=== PATIENT | female | born 1980 | race Caucasian/White ===

== ENCOUNTER 2016-04-28 22:42 | Emergency (ER) | payer OTHER ==
[~2016-04-28] VITALS: Ht 162.6 cm; Wt 68.5 kg
[~2016-04-28 22:42] MED LIST: ADVIL,NUPRIN,M200 MG PO; ATARAX,VISTARIL50 MG PO; ATIVAN0.5 MG PO; BACTRIM,SEPT1 TABLET PO; CIPRO500 MG PO; FLEXERIL10 MG PO; GEODON40 MG PO; HYDROCODON-ACE1 EAC7 PO; HYDROXYZINE HCL50 MG PO; KEFLEX500 MG PO; LEVAQUIN750 MG PO; MILK OF MAGN PO; MOTRIN800 MG PO; NAPROSYN500 MG PO; NO HOME MEDS; NORCO 5/3251 TABLET PO; OXYCODONE-APAP1 EACH PO; OXYCODONE5 MG PO; PERCOCET 5/31 TABLET PO; PROCTOFOAM15 GM TP; SERTRALINE HCL100 MG PO; SPRINTEC1 EACH PO; TRAZODONE HCL100 MG PO; TRAZODONE HCL50 MG PO; TYLENOL REGULA325 MG PO; ULTRAM50 MG PO; VIBRAMYCIN100 MG; ZIPRASIDONE HCL40 MG PO; ZOFRAN ODT4 MG PO; ZOFRAN ODT8 MG PO; ZOLOFT25 MG PO
[2016-04-29 00:14] LABS: CHLORIDE 110 mEq/L (99-109); POTASSIUM 3.4 mEq/L (3.7-5.4); SODIUM 140 mEq/L (136-147)
[2016-04-29 00:16] LABS: HEMATOCRIT 37.3 % (36.0-46.0); MCH 30.9 PG (29.0-34.0); MCHC 34.6 G/DL (30.0-36.0); MCV 89.4 FL (83-99); MEAN PLAT.VOLUME 9.8 uM^3 (9.5-12.4); PLATELET COUNT 320 K/uL (156-360); RBC DIS.WIDTH-CV 11.5 % (11.8-14.6); RBC DIS.WIDTH-SD 36.7 % (39-53); RED BLOOD COUNT 4.17 M/uL (3.80-5.20); WHITE BLOOD COUNT 6.4 K/uL (4.1-10.2)
[2016-04-29 00:16] LABS: GLUCOSE 102 mg/dL (70-99)
[2016-04-29 00:17] LABS: ANION GAP 8 MEQ/L (2-14)
[2016-04-29 00:18] LABS: TOTAL BILIRUBIN 0.3 mg/dL (0.0-1.0)
[2016-04-29 00:20] LABS: ALKALINE PHOSPHATASE 91 IU/L (3-129); GFR ESTIMATE (CALCULATED) > 59 mL/min/
[2016-04-29 00:21] LABS: UREA NITROGEN (BUN) 15 mg/dL (9-23)
[2016-04-29 00:29] LABS: QUANTITATIVE HCG < 4.0 MIU/ML
[2016-04-29 00:50] LABS: ADD MIUA? YES; BILIRUBIN NEGATIVE; BLOOD SMALL; COLOR YELLOW ((YELLOW)); GLUCOSE (STRIP) NEGATIVE; KETONES NEGATIVE; LEUKOCYTES NEGATIVE; NITRITE NEGATIVE; PROTEIN (STRIP) 30; SPECIFIC GRAVITY 1.027 (1.000-1.030); UROBILINOGEN 0.2 MG/DL (0.2-1.0)
[2016-04-29 01:01] LABS: BACTERIA NONE SEEN /HPF; EPITHELIAL CELLS 3+ /HPF; MUCUS 1+ /LPF; UCUL ADDED? NO; WHITE BLOOD CELLS 0-5 /HPF (0-5)
[2016-04-29] MEDS ORDERED: NORCO 5/3251 TABLET PO (02:06)
[2016-04-29 02:18] VITALS: BP 120/68
== END 2016-04-29 02:19 | disposition home or self-care (01) ==
LOC: EME 22:42
DX: N83.202 Unspecified ovarian cyst, left side (principal); E78.5 Hyperlipidemia, unspecified; Z87.442 Personal history of urinary calculi; F17.200 Nicotine dependence, unspecified, uncomplicated
CPT/HCPCS: 76856; 80053; 81003; 84702; 85027; 99281; 99284

== ENCOUNTER 2016-05-07 20:25 | Emergency (ER) | payer OTHER ==
[~2016-05-07] VITALS: Ht 162.6 cm; Wt 68.7 kg
[2016-05-07 21:05] LABS: MCH 30.7 PG (29.0-34.0); MCHC 33.6 G/DL (30.0-36.0); MCV 91.3 FL (83-99); PLATELET COUNT 336 K/uL (156-360); RBC DIS.WIDTH-CV 11.4 % (11.8-14.6); RBC DIS.WIDTH-SD 37.1 % (39-53); RED BLOOD COUNT 4.27 M/uL (3.80-5.20)
[2016-05-07 21:13] LABS: ADD MIUA? YES; BILIRUBIN NEGATIVE; BLOOD MODERATE; COLOR YELLOW ((YELLOW)); GLUCOSE (STRIP) NEGATIVE; KETONES 5; LEUKOCYTES TRACE; NITRITE NEGATIVE; PROTEIN (STRIP) 30; UROBILINOGEN 0.2 MG/DL (0.2-1.0)
[2016-05-07 21:16] LABS: CHLORIDE 104 mEq/L (99-109); POTASSIUM 3.9 mEq/L (3.7-5.4); SODIUM 138 mEq/L (136-147)
[2016-05-07 21:18] LABS: GLUCOSE 82 mg/dL (70-99)
[2016-05-07 21:19] LABS: ANION GAP 10 MEQ/L (2-14)
[2016-05-07 21:20] LABS: TOTAL BILIRUBIN 0.2 mg/dL (0.0-1.0)
[2016-05-07 21:22] LABS: ALKALINE PHOSPHATASE 101 IU/L (3-129); GFR ESTIMATE (CALCULATED) > 59 mL/min/
[2016-05-07 21:23] LABS: UREA NITROGEN (BUN) 19 mg/dL (9-23)
[2016-05-07 21:29] LABS: BACTERIA NONE SEEN /HPF; EPITHELIAL CELLS 2+ /HPF; HYALINE CASTS 0-5 /LPF; MUCUS 2+ /LPF; UCUL ADDED? NO
[2016-05-07 21:33] LABS: QUANTITATIVE HCG < 4.0 MIU/ML
[2016-05-07] MEDS ORDERED: TRAMADOL HCL50 MG PO (22:50)
[2016-05-08] MEDS ORDERED: ZOFRAN ODT4 MG PO (01:43)
[2016-05-08] MEDS ORDERED: ULTRAM50 MG PO (01:43)
[2016-05-08 02:00] VITALS: BP 114/74
== END 2016-05-08 02:02 | disposition home or self-care (01) ==
LOC: RME 20:25 → EME 20:25 → RME 05-08 02:02
DX: R10.2 Pelvic and perineal pain (principal); R11.2 Nausea with vomiting, unspecified; N83.202 Unspecified ovarian cyst, left side
CPT/HCPCS: 76856; 80053; 81003; 84702; 85027; 99281; 99284

== ENCOUNTER 2016-12-07 16:04 | Emergency (ER) | payer OTHER ==
[~2016-12-07] VITALS: Ht 165.1 cm; Wt 70.8 kg
[~2016-12-07 16:04] MED LIST changes: +TRAMADOL HCL50 MG PO
[2016-12-07 16:47] LABS: EOSINOPHIL (%) 0.9 % (0-5); EOSINOPHIL COUNT 0.1 K/uL (0-0.3); HEMATOCRIT 40.3 % (36.0-46.0); IMMATURE GRANULOCYTE (%) 0.3 % (0.0-0.7); INSTRUMENT ABS NEUTROPHIL CT 6.2 K/uL; LYMPHOCYTE COUNT 2.6 K/uL (1.0-2.8); MCH 30.1 PG (29.0-34.0); MCHC 33.5 G/DL (30.0-36.0); MONOCYTE COUNT 0.9 K/uL (0-0.8); NEUTROPHIL (%) 62.9 % (45-76); NEUTROPHIL COUNT 6.2 K/uL (1.8-6.4); RBC DIS.WIDTH-CV 11.8 % (11.8-14.6); RBC DIS.WIDTH-SD 38.4 % (39-53); RED BLOOD COUNT 4.48 M/uL (3.80-5.20); WHITE BLOOD COUNT 9.8 K/uL (4.1-10.2)
[2016-12-07 17:07] LABS: MEAN PLAT.VOLUME 10.4 uM^3 (9.5-12.4); PLATELET COUNT 307 K/uL (156-360)
[2016-12-07 17:16] LABS: CHLORIDE 105 mEq/L (99-109); POTASSIUM 3.6 mEq/L (3.7-5.4); SODIUM 139 mEq/L (136-147)
[2016-12-07 17:18] LABS: GLUCOSE 59 mg/dL (70-99)
[2016-12-07 17:19] LABS: ANION GAP 11 MEQ/L (2-14)
[2016-12-07 17:21] LABS: SERUM ETHYL ALCOHOL < 10 mg/dL
[2016-12-07 17:22] LABS: GFR ESTIMATE (CALCULATED) > 59 mL/min/
[2016-12-07 17:23] LABS: UREA NITROGEN (BUN) 15 mg/dL (9-23)
[2016-12-07 17:30] LABS: QUANTITATIVE HCG < 4.0 MIU/ML
[2016-12-07] MEDS ORDERED: DESYREL100 MG PO (19:18)
[2016-12-07 19:37] VITALS: BP 105/68
== END 2016-12-07 19:48 | disposition home or self-care (01) ==
LOC: EME 16:04
PROVIDERS: Emergency Medicine
DX: F41.0 Panic disorder [episodic paroxysmal anxiety] (principal); Z85.41 Personal history of malignant neoplasm of cervix uteri; Z90.710 Acquired absence of both cervix and uterus; Z90.721 Acquired absence of ovaries, unilateral; F17.210 Nicotine dependence, cigarettes, uncomplicated
CPT/HCPCS: 80048; 81003; 84702; 85025; 90839; 99281; 99283; G0480

== ENCOUNTER 2017-05-12 13:43 | Emergency (ER) | payer OTHER ==
[~2017-05-12] VITALS: Ht 165.1 cm; Wt 77.3 kg
[~2017-05-12 13:43] MED LIST changes: +DESYREL100 MG PO
[2017-05-12 14:36] LABS: APPEARANCE SL.HAZY ((CLEAR)); BILIRUBIN NEGATIVE; BLOOD SMALL; COLOR YELLOW ((YELLOW)); GLUCOSE (STRIP) NEGATIVE; KETONES NEGATIVE; LEUKOCYTES NEGATIVE; NITRITE NEGATIVE; PROTEIN (STRIP) 30; SPECIFIC GRAVITY 1.029 (1.000-1.030); UROBILINOGEN 0.2 MG/DL (0.2-1.0)
[2017-05-12 14:37] LABS: BASOPHIL (%) 0.5 % (0-1); EOSINOPHIL (%) 3.2 % (0-5); EOSINOPHIL COUNT 0.3 K/uL (0-0.3); HEMATOCRIT 36.7 % (36.0-46.0); HEMOGLOBIN 12.6 G/DL (11.9-15.5); IMMATURE GRANULOCYTE (%) 0.2 % (0.0-0.7); LYMPHOCYTE (%) 43.8 % (15-42); LYMPHOCYTE COUNT 3.6 K/uL (1.0-2.8); MCH 31.1 PG (29.0-34.0); MCHC 34.3 G/DL (30.0-36.0); MCV 90.6 FL (83-99); MONOCYTE (%) 5.3 % (3-12); MONOCYTE COUNT 0.4 K/uL (0-0.8); NEUTROPHIL COUNT 3.8 K/uL (1.8-6.4); PLATELET COUNT 302 K/uL (156-360); RBC DIS.WIDTH-CV 11.5 % (11.8-14.6); RED BLOOD COUNT 4.05 M/uL (3.80-5.20); WHITE BLOOD COUNT 8.1 K/uL (4.1-10.2)
[2017-05-12 14:42] LABS: BACTERIA 1+ /HPF; EPITHELIAL CELLS RARE /HPF; HYALINE CASTS 0-5 /LPF; MUCUS 4+ /LPF; WHITE BLOOD CELLS 0-5 /HPF (0-5)
[2017-05-12 14:56] LABS: CHLORIDE 104 mEq/L (99-109); POTASSIUM 3.6 mEq/L (3.7-5.4); SODIUM 139 mEq/L (136-147)
[2017-05-12 14:58] LABS: GLUCOSE 103 mg/dL (70-99)
[2017-05-12 15:02] LABS: CREATININE 0.8 mg/dL (0.6-1.3); GFR ESTIMATE (CALCULATED) > 59 mL/min/
[2017-05-12 15:03] LABS: UREA NITROGEN (BUN) 14 mg/dL (9-23)
[2017-05-12] MEDS ORDERED: ZOFRAN ODT4 MG PO (15:12)
[2017-05-12] MEDS ORDERED: ULTRAM50 MG PO (15:12)
[2017-05-12] MEDS ORDERED: CITRATE OF MAG296 ML PO (15:12)
[2017-05-12 15:21] VITALS: BP 120/55
== END 2017-05-12 15:23 | disposition home or self-care (01) ==
LOC: EME 13:43
PROVIDERS: Physician Assistant
DX: K59.00 Constipation, unspecified (principal); N20.0 Calculus of kidney; E78.5 Hyperlipidemia, unspecified; F41.9 Anxiety disorder, unspecified; Z90.710 Acquired absence of both cervix and uterus; Z87.442 Personal history of urinary calculi; Z85.41 Personal history of malignant neoplasm of cervix uteri; F17.200 Nicotine dependence, unspecified, uncomplicated
CPT/HCPCS: 74176; 80048; 81003; 85025; 99281; 99285; J1885